=== PATIENT | female | born 1990 | race Caucasian/White ===

== ENCOUNTER 2024-11-13 16:07 | Outpatient (AMB) | payer BC, SELFPAY ==
--- OUTSIDE RECORDS SUMMARY | 2024-11-13 16:10 | XMS_ITS | Data Portability ---
Author Organization [facility], [facility] Address [address] [place] [address] Care Team Providers Care Cat Operator Name Role Phone LINDA MILLS Dental Office Receptionist [phone] [facility] (WANG WILSON) Orthopedist SORAIDA PEÑA Primary Care Provider [phone] Assessment Encounter Date Assessment Date Assessment LastModified by Organization Details LastModified Time 02/19/2024 02/19/2024 Assessment: Able to progress today into some squatting and step down variations. Pleased to hear reports of muscle fatigue rather than joint pain with exercise today. Updated exercises issued electronically. Cadet deficits/impairme nts: L LE weakness, balance, ankle mobility Functional limitations: walking and standing tolerances, stair navigation Response to treatment: patient demonstrates safe and appropriate performance of initial home exercise program. Patient tolerated all interventions well and denied adverse events upon departure. Patient would benefit from skilled PT intervention in order to address the aforementioned impairments, maximize patient function, and achieve patient specific goals. Plan: Patient will benefit from 8 weeks of skilled physical therapy at a frequency of 1session(s) per week. Treatment to include the following as indicated: 05943 Therapeutic Exercise, 50096 Neuromuscular Re-education, 14265 Gait Training, 91365 Manual Therapy, 45700 Therapeutic Activity, and 33507 Self-care and ADL Training Next visit: review home program and progress as appropriate [email or web address] Not available 02/19/2024 13:00:32 03/06/2024 03/06/2024 Assessment: Seems to be recovering well from symptom flare up from big increase in walking volume. Advise pt to work her way back up to recommended exercise volume over the next 3-4 days. Pleased to see improvements in ankle mobility. No progressions indicated today. Cadet deficits/impairme nts: L LE weakness, balance, ankle mobility Functional limitations: walking and standing tolerances, stair navigation Response to treatment: patient demonstrates safe and appropriate performance of initial home exercise program. Patient tolerated all interventions well and denied adverse events upon departure. Patient would benefit from skilled PT intervention in order to address the aforementioned impairments, maximize patient function, and achieve patient specific goals. Plan: Patient will benefit from 8 weeks of skilled physical therapy at a frequency of 1session(s) per week. Treatment to include the following as indicated: 10389 Therapeutic Exercise, 36062 Neuromuscular Re-education, 43186 Gait Training, 55635 Manual Therapy, 08329 Therapeutic Activity, and 54752 Self-care and ADL Training Next visit: review home program and progress as appropriate [email or web address] Not available 03/06/2024 16:32:51 03/13/2024 03/13/2024 Assessment: Pleased pt is tolerating higher walking volume well. Difficulty with squats seems to be related to avoidance of unrelated R hip pain which pt attributes to a skin issue. Discussed appropriate modifications at this time. Updated home exercises issued in writing. Cadet deficits/impairme nts: L LE weakness, balance, ankle mobility Functional limitations: walking and standing tolerances, stair navigation Response to treatment: patient demonstrates safe and appropriate performance of initial home exercise program. Patient tolerated all interventions well and denied adverse events upon departure. Patient would benefit from skilled PT intervention in order to address the aforementioned impairments, maximize patient function, and achieve patient specific goals. Plan: Patient will benefit from 8 weeks of skilled physical therapy at a frequency of 1session(s) per week. Treatment to include the following as indicated: 94278 Therapeutic Exercise, 71455 Neuromuscular Re-education, 89767 Gait Training, 55270 Manual Therapy, 22266 Therapeutic Activity, and 24828 Self-care and ADL Training Next visit: re-evaluate Not available 03/13/2024 16:58:00 03/30/2024 03/30/2024 Assessment: Pt appropriate for discharge to home exercise program based on progress towards established goals. Pt in agreement with this plan. Pt to contact attending PT or referring provider with any changes in symptoms or future concerns. Cadet deficits/impairme nts: L LE weakness, balance, ankle mobility Functional limitations: walking and standing tolerances, stair navigation Response to treatment: patient demonstrates safe and appropriate performance of initial home exercise program. Patient tolerated all interventions well and denied adverse events upon departure. Patient would benefit from skilled PT intervention in order to address the aforementioned impairments, maximize patient function, and achieve patient specific goals. Patients' prognosis for improvement with PT care is GOOD. Goal Progress Comment Improve rating on Patient-Specific Functional Scale activities by 2 points (MCID). goal met Independent in comprehensive HEP. goal met Patient will navigate one full flight of stairs without aggravation of symptoms for improved functional mobility. goal met Normalize L LE dorsiflexion PROM goal met Additional goals to be added as appropriate. Plan: d/c [email or web address] Not available 03/30/2024 14:26:05 Plan of Treatment Reminders Order Date Submit Date Provider Last Modified By Organization Details Last Modified Time Details Appointments Wellness Visit 2025 04:00P Carina PEÑA, IAN Not available Not available Not available Lab lipid panel, serum 2024 025 [facility], [address] [place] [address], [address], 10/28/2024 14:38:49 HbA1c (hemoglob in A1c), blood 2024 025 [facility], [address] [place] [address], [address], 10/28/2024 11:17:07 ferritin, serum or plasma 2024 025 [facility], [address] [place] [address], [address], 10/28/2024 12:29:04 iron + total iron-bind ing capacity (TIBC), serum 2024 025 [facility], [address] [place] [address], [address], 10/28/2024 14:38:51 Referral None recorded. Procedures None recorded. Surgeries None recorded. Imaging None recorded. Medication Orders Isibloom 0.15 mg-0.03 mg tablet 2024 025 [id number], [address] [place], [place], [id number], 10/22/2024 20:10:21 Patient TargetsNo targets recorded. Patient Instructions Encounter Date Encounter Id Patient Instructions Last Modified By Organization Details Last Modified Time 03/13/2024 [id number] Patient instruct ed to inform attending physical therapist of any apprehension, pain, discomfort, or change in symptoms throughout the course of treatment. Patient verbalized understanding and agreed to comply. [email or web address] Not available 03/13/2024 16:58:03 03/30/2024 [id number] Patient instruct ed to inform attending physical therapist of any apprehension, pain, discomfort, or change in symptoms throughout the course of treatment. Patient verbalized understanding and agreed to comply. [email or web address] Not available 03/30/2024 14:01:37 Reason for Referral None Reported. Results Created Date Observation Date Name Description Value Unit Range Abnormal Flag Note LastModifiedBy Organization Detail LastModifiedTime 10/29/1910/28/2024 CBC WBC 8.41 K/ L 3.98-1 0.04 Not Available [address], [address], 10/28/2024 10:02:30 10/29/1910/28/2024 CBC RBC 4.48 M/ L 3.93-5 .22 Not Available [address], [address], 10/28/2024 10:02:30 10/29/1910/28/2024 CBC HGB 13.1 g/dL 11.2-1 5.7 Not Available [address], [address], 10/28/2024 10:02:30 10/29/1910/28/2024 CBC HCT 40.0 % 34.1-4 4.9 Not Available [address], [address], 10/28/2024 10:02:30 10/29/1910/28/2024 CBC MCV 89.3 fL 79.4-9 4.8 Not Available [address], [address], 10/28/2024 10:02:30 10/29/1910/28/2024 CBC MCH 29.2 pg 25.6-3 2.2 Not Available [address], [address], 10/28/2024 10:02:30 10/29/1910/28/2024 CBC MCHC 32.8 g/dL 32.2-3 5.5 Not Available [address], [address], 10/28/2024 10:02:30 10/29/1910/28/2024 CBC plt 272 K/ L 182-36 9 Not Available [address], [address], 10/28/2024 10:02:30 10/29/1910/28/2024 CBC MPV 10.7 fL 9.4-12 .3 Not Available [address], [address], 10/28/2024 10:02:30 10/29/1910/28/2024 CBC neut% 57.2 % 34.0-7 1.1 Not Available [address], [address], 10/28/2024 10:02:30 10/29/1910/28/2024 CBC neut# 4.81 1.56-6 .13 Not Available [address], [address], 10/28/2024 10:02:30 10/29/1910/28/2024 CBC lymph % 34.6 % 19.3-5 1.7 Not Available [address], [address], 10/28/2024 10:02:30 10/29/1910/28/2024 CBC lymph # 2.91 K/ L 1.18-3 .74 Not Available [address], [address], 10/28/2024 10:02:30 10/29/1910/28/2024 CBC mono% 6.4 % 4.7-12 .5 Not Available [address], [address], 10/28/2024 10:02:30 10/29/1910/28/2024 CBC mono# 0.54 0.24-0 .56 Not Available [address], [address], 10/28/2024 10:02:30 10/29/1910/28/2024 CBC eo% 1.2 % 0.7-5. 8 Not Available [address], [address], 10/28/2024 10:02:30 10/29/1910/28/2024 CBC eo# 0.10 0.04-0 .36 Not Available [address], [address], 10/28/2024 10:02:30 10/29/1910/28/2024 CBC baso% 0.5 % 0.1-1. 2 Not Available [address], [address], 10/28/2024 10:02:30 10/29/1910/28/2024 CBC baso# 0.04 0.00-0 .08 Not Available [address], [address], 10/28/2024 10:02:30 10/29/1910/28/2024 CBC RDW-CV 13.2 % 11.7-1 4.4 Not Available [address], [address], 10/28/2024 10:02:30 10/29/1910/28/2024 CBC Ig% 0.100 % 0.000- 1.500 Ig % >0.5 Indic ates possi ble Left Shift Not Available [address], [address], 10/28/2024 10:02:30 10/29/1910/28/2024 CBC Ig# 0.010 0.000- 0.093 Not Available [address], [address], 10/28/2024 10:02:30 10/29/1910/28/2024 CBC NRBC% 0.0 % 0.0-0. 2 Not Available [address], [address], 10/28/2024 10:02:30 10/29/1910/28/2024 CBC NRBC# 0.000 0.000- 0.012 Not Available [address], [address], 10/28/2024 10:02:30 10/29/1910/28/2024 HGB A1C hemoglobin A1C 5.5 % 4.8-6. 0 Goal: <7% in Patie nts with Diabe janet An A1c betwe en 5.7-6 .4% is ident ified as pre-d iabet es and sugge sts risk for progr essio n to diabe janet Two a1c value s of 6.5% or highe r is consi stent with a diagn osis of diabe janet but may need furth er confi rmati on Not Available [address], [address], 10/28/2024 11:17:07 10/29/1910/28/2024 HGB A1C estimated average glucose 111.2 mg/dL Not Available [address], [address], 10/28/2024 11:17:07 10/29/19 10/28/2024 LISA TIN ferritin 242 NG/mL 6-115 high Not Available [address], [address], 10/28/2024 12:29:04 10/29/19 25 10/28/2024 COMP. METAB OLIC PANEL glucose 84 mg/dL 70-100 Not Available [address], [address], 10/28/2024 14:38:47 10/29/19 25 10/28/2024 COMP. METAB OLIC PANEL BUN 8 mg/dL 7-18 Not Available [address], [address], 10/28/2024 14:38:47 10/29/19 25 10/28/2024 COMP. METAB OLIC PANEL creatinine 0.9 mg/dL 0.8-1. 3 Not Available [address], [address], 10/28/2024 14:38:47 10/29/19 25 10/28/2024 COMP. METAB OLIC PANEL B/C 8.9 ratio Not Available [address], [address], 10/28/2024 14:38:47 10/29/19 25 10/28/2024 COMP. METAB OLIC PANEL GFR >=60ML /MIN mL/mi n normal >=60m L/min - Danya l or midly reduc ed <60mL /min- Decre ased kidne y funct ion <15mL /min - Kidne y failu re [facility] calcu lates estim ated Glome rular Filtr ation Rate (eGFR ) using the Chron ic Kidne y Disea se Epide miolo gy Colla borat ion (CKD- EPI) Equat ion (Dominique ghotra et. al 2020) as recom magali d by the Natio nal Kidne y Found ation . eGFR is based on age, serum creat inine , and sex. CKD-E PI does not calcu late eGFR by race, does not apply to child prince (age <18 years ), and shoul d not be used in pregn akil. Not Available [address], [address], 10/28/2024 14:38:47 10/29/19 25 10/28/2024 COMP. METAB OLIC PANEL sodium 141 mmol/ L 136-14 5 Not Available [address], [address], 10/28/2024 14:38:47 10/29/19 25 10/28/2024 COMP. METAB OLIC PANEL potassium 4.2 mmol/ L 3.5-5. 1 Not Available [address], [address], 10/28/2024 14:38:47 10/29/19 25 10/28/2024 COMP. METAB OLIC PANEL chloride 106 mmol/ L 96-107 Not Available [address], [address], 10/28/2024 14:38:47 10/29/19 25 10/28/2024 COMP. METAB OLIC PANEL anion gap 13.8 5.0-15 .0 Not Available [address], [address], 10/28/2024 14:38:47 10/29/19 25 10/28/2024 COMP. METAB OLIC PANEL CO2 21 mmol/ L 21-32 Not Available [address], [address], 10/28/2024 14:38:47 10/29/19 25 10/28/2024 COMP. METAB OLIC PANEL calcium 8.6 mg/dL 8.5-10 .3 Not Available [address], [address], 10/28/2024 14:38:47 10/29/19 25 10/28/2024 COMP. METAB OLIC PANEL total protein 6.6 g/dL 6.4-8. 2 Not Available [address], [address], 10/28/2024 14:38:47 10/29/19 25 10/28/2024 COMP. METAB OLIC PANEL albumin 3.4 g/dL 3.4-5. 0 Not Available [address], [address], 10/28/2024 14:38:47 10/29/19 25 10/28/2024 COMP. METAB OLIC PANEL globulin 3.2 g/dL Not Available [address], [address], 10/28/2024 14:38:47 10/29/19 25 10/28/2024 COMP. METAB OLIC PANEL A/G 1.1 ratio 0.8-2. 0 Not Available [address], [address], 10/28/2024 14:38:47 10/29/19 25 10/28/2024 COMP. METAB OLIC PANEL total bilirubin 0.30 mg/dL 0.00-1 .00 Not Available [address], [address], 10/28/2024 14:38:47 10/29/19 25 10/28/2024 COMP. METAB OLIC PANEL AST 3 U/L 0-37 Not Available [address], [address], 10/28/2024 14:38:47 10/29/19 25 10/28/2024 COMP. METAB OLIC PANEL ALT 16 U/L 6-63 Not Available [address], [address], 10/28/2024 14:38:47 10/29/19 25 10/28/2024 COMP. METAB OLIC PANEL alk. phos. 46 U/L 50-136 low Not Available [address], [address], 10/28/2024 14:38:47 10/29/1910/28/2024 LIPID PANEL cholesterol 189 mg/dL <200 mg/dl Abelino able 200-2 39 mg/dl Borde rline High >240 mg/dl High Not Available [address], [address], 10/28/2024 14:38:49 10/29/1910/28/2024 LIPID PANEL triglyceride s 157 mg/dL <150 mg/dL Danya l 150-1 99 mg/dL Borde rline High 200-4 99 mg/dL High >500 mg/dL Very High Not Available [address], [address], 10/28/2024 14:38:49 10/29/1910/28/2024 LIPID PANEL direct HDL 49 mg/dL <40 mg/dl - Major Risk for CHD >60 mg/dl - Negat macrina Risk for CHD Not Available [address], [address], 10/28/2024 14:38:49 10/29/1910/28/2024 DIREC T LDL direct LDL 105 mg/dL RISK CATEG ORY LDL GOAL _ CHD or CHD Risk Equiv alent s <100 mg/dl (10-y ear risk >20%) 2+ Risk Facto rs <130 mg/dl (10-y ear risk <= 20%) 0-1 Risk Facto r <160 mg/dl Almo st all peopl e with 0-1 risk facto r have a 10 year risk <10%, thus 10 year risk asses ment in peopl e with 0-1 risk facto r is not neces fran. Not Available [address], [address], 10/28/2024 14:38:50 10/29/1910/28/2024 IRON PANEL iron 67 ug/dL 35-150 Not Available [address], [address], 10/28/2024 14:38:50 10/29/1910/28/2024 IRON PANEL T.I.B.C. 304 ug/dL 250-45 0 Not Available [address], [address], 10/28/2024 14:38:50 10/29/1910/28/2024 IRON PANEL % saturation 22.0 % Not Available [address], [address], 10/28/2024 14:38:50 Result Notes None recorded. Problems Name Problem SNOMED Code Status Onset Date Resolution Date Notes Provider Name and Address Organization Details Recorded Time Gastroesop hageal reflux disease 628620200 Active Teri Payne, [facility]-[address], [address] , [facility] 4 12:39:32 Migraine 66400151 Active 2021 Mara Young MD [address] [place] [address], [address] , [facility] 2 10:36:05 Headache 97273821 Completed 01/17/2015 Mara Young MD [address] [place] [address], [address] , [facility] 2 10:35:58 Contusion 694712772 Completed 200203/25/2013 Not Available [facility] 3 02:02:46 Contusion of finger 71508524 Completed 200803/25/2013 Not Available [facility] 3 02:04:20 Influenza with respirator y manifestat ion other than pneumonia Completed 200703/25/2013 Not Available [facility] 3 02:03:48 Allergic rhinitis 05274990 Active Not Available [facility] 3 03:06:36 Acute pharyngiti s 549901118 Completed 200703/25/2013 Not Available [facility] 3 02:01:15 Rosacea 765795781 Active 2004 Not Available [facility] 3 03:06:36 Contusion of foot 47979295 Completed 200103/25/2013 Not Available [facility] 3 02:04:22 Injury of hand 535833118 Completed 200803/25/2013 Not Available [facility] 3 02:04:03 Obesity 584698102 Active Not Available [facility] 3 03:06:36 Patellar tendonitis 39655076 Completed 03/25/2013 Not Available [facility] 3 02:04:18 Pain of joint 22432937 Completed 200801/17/2015 Beryl March NP [address] [place] [address], [address] , [facility] 5 16:22:12 Pain of joint of hand 798779298 Completed 200103/25/2013 Not Available [facility] 3 02:02:43 Generalize d abdominal pain 462515731 Completed 200003/25/2013 Not Available [facility] 3 02:02:04 Elevated blood-pres sure reading without diagnosis of hypertensi on 313389517 Completed 01/17/2015 Beryl March NP [address] [place] [address], [address] , [facility] 5 16:22:12 Acne 14590493 Active Not Available [facility] 3 03:06:36 Injury of elbow 036629294 Completed 200803/25/2013 Not Available [facility] 3 02:04:03 Sprain of wrist 39610171 Completed 200503/25/2013 Not Available [facility] 3 02:03:44 Pain of wrist region 04049441 Completed 200103/25/2013 Not Available [facility] 3 02:02:22 Pain in limb 54067264 Completed 200103/25/2013 Not Available [facility] 3 02:00:52 Malaise and fatigue 290148557 Completed 200203/25/2013 Not Available [facility] 3 02:00:14 Sprain of hand 25183409 Completed 200803/25/2013 Not Available [facility] 3 02:03:40 Problem Notes None recorded. Procedures Surgical History Date Name Laterality Status Provider Name and Address Organization Details Recorded Time 4 96418: Therapeutic Exercise completed RUPERT RUIZ, PT, DPT [address] [place], [address], [facility] 03/30/2024 14:25:07 4 Treatment and Advice completed RUPERT RUIZ PT, DPT [address] [place] [address], [address], [facility] 03/30/2024 14:01:37 4 40250: Therapeutic Exercise completed RUPERT RUIZ PT, DPT [address] [place] [address], [address], [facility] 03/13/2024 16:56:25 4 Treatment and Advice completed RUPERT RUIZ PT, DPT [address] [place] [address], [address], [facility] 03/13/2024 16:50:45 4 40202: Therapeutic Exercise completed RUPERT RUIZ PT, DPT [address] [place], [address], [facility] 03/06/2024 16:31:45 4 Treatment and Advice completed RUPERT RIUZ PT, DPT [address] [place] [address], [address], [facility] 03/06/2024 16:06:58 4 16824: Therapeutic Exercise completed RUPERT RUIZ, PT, DPT [address] [place] [address], [phone], [facility] 02/19/2024 12:56:30 4 Treatment and Advice completed RUPERT RUIZ PT, DPT [address] [place] [address], [address], [facility] 02/19/2024 12:56:24 4 31495: Therapeutic Exercise completed RUPERT RUIZ PT, DPT [address] [place] [address], [address], [facility] 02/13/2024 07:56:48 4 Treatment and Advice completed RUPERT RUIZ PT, DPT [address] [place], [address], [facility] 02/13/2024 07:55:02 4 30266: Therapeutic Exercise completed RUPERT RUIZ PT, DPT [address] [place], [address], [facility] 02/06/2024 07:58:54 4 Treatment and Advice completed RUPERT RUIZ PT, DPT [address] [place] [address], [address], [facility] 02/06/2024 07:52:43 4 80900: Therapeutic Exercise completed RUPERT RUIZ PT, DPT [address] [place], [address], [facility] 01/30/2024 08:00:26 4 73939: Manual Therapy completed RUPERT RUIZ PT, DPT [address] [place], [address], [facility] 01/30/2024 08:00:46 4 Treatment and Advice completed RUPERT RUIZ PT, DPT [address] [place], [address], [facility] 01/30/2024 07:54:35 4 Smoking Cessation Counselling completed RUPERT RUIZ PT, DPT [address] [place], [address], [facility] 01/20/2024 10:08:16 4 Physical Activity Counselling completed RUPERT RUIZ PT, DPT [address] [place], [address], [facility] 01/20/2024 10:08:16 4 67822: PT Eval Low Complexity completed RUPERT RUIZ, PT, DPT [address] [place], [address], [facility] 01/20/2024 10:08:16 4 Treatment and Advice completed RUPERT RUIZ, PT, DPT [address] [place], [address], [facility] 01/21/2024 08:28:13 0 prevention-syd al alcohol misuse screening completed Tomasa Reynoso [facility] 01/20/2020 08:41:39 8 POC Strep Testing completed Meaghan Medina [facility] 09/05/2017 09:19:51 8 POC Strep Testing completed Ny Pleitez [facility] 07/16/2017 11:55:53 8 Refraction completed Zaina Esparza [facility] 05/23/2017 11:06:52 7 Cerumen Removal - Irrigation/Lava ge completed Rikki Graff PA-C [address] [place], [address], [facility] 07/28/2016 09:31:17 5 Cerumen Removal completed Sushma Quinones [facility] 12/27/2014 11:00:26 Imaging Results None recorded. Procedure Notes None recorded. Medical Equipment None Reported. Allergies No known drug allergies Medications Name Sig Start Date Stop Date Status Note LastModified by Organization Details LastModified Time cyclobenz aprine 10 mg tablet Take 1 tablet twice a day by oral route as needed. 03/02 completed Not Available Not Available Not Available verapamil 40 mg tablet TAKE 1 TABLET BY MOUTH TWICE A DAY 04/07 completed per patient is not taking this anymore 04/07/20 srp Not Available Not Available Not Available ibuprofen 800 mg tablet 12/27 completed Not Available Not Available Not Available sumatript an 100 mg tablet TAKE 1 TABLET BY MOUTH AT LEAST 2 HOURS BETWEEN DOSES NEEDED DIRECTED active Not Available Not Available No t Available ondansetr on HCl 8 mg tablet TK 1 T PO Q 8 H FOR 2 DAYS 07/03 completed Not Available Not Available Not Available atovaquon e 250 mg-progua nil 100 mg tablet TK 1 T PO D STARTING 1 TO 2 DAYS BEFORE TRAVEL AND CONTINUE D FOR 7 DAYS POST-TRA ARLENE 05/04 completed Not Available Not Available Not Available sumatript an 50 mg tablet 06/11 completed taking the 100 mg 06/11/23 DS Not Available Not Available Not Available topiramat e 25 mg tablet TK 1 T PO QD FOR 7 DAYS. MAY INCREASE TO 2 TS D FOR 7 DAYS 04/07 completed Not Available Not Available Not Available omeprazol e 40 mg capsule,d elayed release TAKE 1 CAPSULE BY MOUTH EVERY DAY 12/16 completed Not Available Not Available Not Available doxycycli ne monohydra te 100 mg tablet Take 1 tablet twice a day by oral route for 30 days. 08/13 completed Not Available Not Available Not Available ketorolac 30 mg/mL (1 mL) injection solution Administ er 30 mg/ml now 07/03 completed Not Available Not Available Not Available amitripty line 25 mg tablet Take 1 tablet every day by oral route for 30 days. 02/17 completed Not Available Not Available Not Available metoclopr amide 5 mg tablet TAKE 1 TABLET BY MOUTH DAILY NEEDED FOR NAUSEA active Not Available Not Available No t Available ciproflox acin 0.3 % eye drops INSTILL 1 DROP INTO AFFECTED ear every 12 hours for 7 days active Not Available Not Available No t Available benzonata te 100 mg capsule 07/16 completed Pt has not picked up 05/04/17 Not Available Not Available Not Available Cipro 500 mg tablet Take 1 tablet every 12 hours by oral route for 7 days. 12/02 completed Not Available Not Available Not Available nystatin 100,000 unit/gram topical cream JOSE AA TOPICALL Y BID UNTIL RASH RESOLVES 09/13 completed Not Available Not Available Not Available ranitidin e 150 mg tablet Take 1 tablet twice a day by oral route for 30 days. 07/06 completed Not Available Not Available Not Available promethaz ine 25 mg/mL injection solution Take 1 mL every day by injectio n route as directed for 1 day. 04/04 completed Not Available Not Available Not Available naproxen 500 mg tablet,de layed release Take 1 tablet twice a day by oral route as needed. 03/02 completed Not Available Not Available Not Available ibuprofen 400 mg tablet Take 1 tablet as needed by oral route. 2008 active Not Available Not Available Not Avai lable omeprazol e 20 mg capsule,d elayed release TAKE 1 CAPSULE BY MOUTH DAILY before breakfas t meal 2024 active Not Available Not Available Not Avai lable ibuprofen 600 mg tablet Take 1 tablet 3 times a day by oral route for 7 days. 12/25 completed Not Available Not Available Not Available ferrous sulfate 325 mg (65 mg iron) tablet,de layed release Take 1 tablet by oral route for 30 days. 09/13 completed Not Available Not Available Not Available ketorolac 60 mg/2 mL intramusc ular solution Inject 2 mL every day by intramus cular route as directed for 1 day. 04/04 completed Not Available Not Available Not Available ketoconaz ole 2 % topical cream APPLY TOPICALL Y TO THE AFFECTED AREA EVERY DAY 06/11 completed Not Available Not Available Not Available Cortispor in-TC 3.3 mg-3 mg-10 mg-0.5 mg/mL ear drops,jeremías pension Instill 3 drops 3 times a day by otic route for 4 days. 03/02 completed 01/17/15- pt states she no longer takes med-ac Not Available Not Available Not Available topiramat e 100 mg tablet TAKE 1 TABLET BY MOUTH EVERY DAY active Not Available Not Available No t Available loratadin e 10 mg tablet Take 1 tablet every day by oral route for 30 days. 2008 active Not Available Not Available Not Avai lable Lessina 0.1 mg-20 mcg tablet TAKE 1 TABLET BY MOUTH EVERY DAY 04/26 completed Not Available Not Available Not Available azithromy betsy 500 mg tablet 12/27 completed Not Available Not Available Not Available Ciprodex 0.3 %-0.1 % ear drops,jeremías pension INT 4 GTS AEA BID FOR 7 DAYS 05/04 completed Not Available Not Available Not Available topiramat e 50 mg tablet TAKE 1 AND 1/2 TABLETS BY MOUTH EVERY DAY 02/15 completed Not Available Not Available Not Available ProAir HFA 90 mcg/actua tion aerosol inhaler INL 2 PFS PO Q 4 H PRN 07/16 completed Not Available Not Available Not Available FeroSul 325 mg (65 mg iron) tablet TAKE 1 TABLET BY MOUTH EVERY DAY 10/30 completed Not Available Not Available Not Available Isibloom 0.15 mg-0.03 mg tablet 1 tab every day. Does not take the placebo pills. 2024 active Not Available Not Available Not Avai lable Sodium Fluoride 5000 Plus 1.1 % dental cream 06/11 completed Not Available Not Available Not Available Flublok Quad (PF) 180 mcg (45 mcg x 4)/0.5 mL IM syringe PHARMACY ADMINIST ERED 03/03 completed Not Available Not Available Not Available Vitals Date Recorded Body height Body mass index (BMI) Body weight Oxygen saturation Oxygen saturation in Arterial blood by Pulse oximetry Heart rate Systolic And Diastolic Provider Name and Address Organization Details Last Updated DateTime 5 149.86 cm 41.2 kg/m2 04802.8 4 g 98 % 98 % 82 /min 120/68 mm[Hg] Lars Salinas MA [facility] 5 16:13:08 Social History Question Answer Notes LastModified by Organizat ion Details LastModified Time Tobacco Smoking Status Never Smoker Not Available [facility] 03/22/2011 04:48:29 Do You Have An Advance Directive? No 7 Information not available 03/22/2011 What Is Your Level Of Caffeine Consumption? None Very Rarely [email or web address] Information not available 06/11/2023 How Much Tobacco Do You Chew? None 7 Information not available 03/22/2011 Which Illicit Or Recreational Drugs Have You Used? No Information not available 03/11/2015 Education 2 Year College Information not available 03/11/2015 What Is The Highest Grade Or Level Of School You Have Completed Or The Highest Degree You Have Received? [id number] Information not available 02/15/2021 How Many Days In The Past Year Have You Had A Heavy Drinking Consumption (4+ Female, 5+ Male)? 0 Information not available 01/17/2015 Live Alone Or With Others? Alone Information not available 01/20/2020 Have Your Ever Had Any Service? No Information not available 10/22/2024 How Many Times Per Week Do You Exercise For 30+ Minutes? 1-4 Times Per Week Takes 15 To 30 Min Walks 4 Times A Week Information not available 10/22/2024 Patient Has Health Care Proxy Signed And In Chart No 10/22/24- Form Given To Pt 7 Information not available 03/22/2011 Marital Status Single [id number] Information not available 03/22/2011 Mosquito Repellent Used Routinely Yes 7 Information not available 03/22/2011 What Was The Date Of Your Most Recent Tobacco Screening? 10/22/2024 Information not available 10/22/2024 How Many Children Do You Have? 0 7 Information not available 03/22/2011 What Is Your Relationship Status? Single Information not available 02/15/2021 Seat Belts Used Routinely Yes 7 Information not available 03/22/2011 Are You Sexually Active? No 7 Information not available 03/22/2011 Smoke Alarm In Home Yes 7 Information not available 03/22/2011 How Much Tobacco Do You Smoke? No 7 Information not available 03/22/2011 General Stress Level Medium Low To Medium Information not available 01/20/2020 Sex: Female Functional Status Question Answer Note LastModified by Organizat ion Details LastModified Time Do you use any illicit or recreational drugs? No Information not available 02/15/2021 Do you or have you ever used any other forms of tobacco or nicotine? No Information not available 04/04/2022 What is your level of alcohol consumption? None very rare, like 1 drink every 6 months [email or web address] Information not available 06/11/2023 Do you or have you ever used smokeless tobacco? Never used smokeless tobacco Information not available 07/03/2019 Are you currently employed? Yes Information not available 02/15/2021 What is your occupation? works for [employer] Information not available 10/22/2024 Do you or have you ever used e-cigarettes or vape? Never used electronic cigarettes Information not available 07/03/2019 Mental Status None recorded. Family History Relationship Description Onset Age of this Age Resolved Age Notes LastModified by Organization Details LastModified Time Father Malignant neoplastic disease kidney (previ ously record ed as Cancer ) egraef Not available 03/11/2015 16:49:51 Mother Osteoporosis egraef Not availab le 03/11/2015 16:49:51 Mother Disorder of thyroid gland egraef Not available 2014 16:49:51 Sister Disorder of thyroid gland egraef Not available 2020 16:00:39 Notes:No colon or breast CA Medical History Condition Response acne Y Gynecological History Statement/Question Response Menses Monthly Y Duration of Flow (days) 5 Date of LMP 03/10/2022 Approximate Obstetrics History GPAL:G 0 P 0 0 0 0 Immunizations Vaccine Type Date Status Note Provider Nam e and Address Organization Details Recorded Time Td(adult) unspecified formulation 3 completed Not Available [facility] 03/21/2011 05:22:52 HPV, unspecified formulation 7 completed Not Available [facility] 03/21/2011 05:23:04 HPV, unspecified formulation 7 completed Not Available [facility] 03/21/2011 05:21:55 HPV, unspecified formulation 8 completed Not Available [facility] 03/21/2011 05:21:55 Influenza, split virus, trivalent, PF 3 completed Not Available [facility] 05/23/2019 02:26:42 Influenza, split virus, quadrivalent, PF 5 completed Not Available [facility] 05/23/2019 02:26:43 Influenza, split virus, quadrivalent, PF 6 completed Not Available [facility] 05/23/2019 02:33:00 Influenza, split virus, quadrivalent, PF 9 completed Not Available [facility] 05/23/2019 02:23:32 Influenza, split virus, quadrivalent, PF 9 completed Not Available [facility] 05/23/2019 02:24:05 Influenza, split virus, quadrivalent, PF 1 completed Teri Payne, [address], [address], [facility] 02/15/2021 16:00:51 Td (adult), 2 Lf tetanus toxoid, preservative free, adsorbed 1 completed Teri Payne, [address], [address], [facility] 02/15/2021 16:00:51 Influenza, split virus, quadrivalent, preservative 0 completed Not Available [facility] 03/01/2020 16:04:17 COVID-19, mRNA, LNP-S, PF, 100 mcg/0.5mL dose or 50 mcg/0.25mL dose 1 [facility] 10:01:27 COVID-19, mRNA, LNP-S, PF, 100 mcg/0.5mL dose or 50 mcg/0.25mL dose 1 [facility] 12/17/2023 10:01:27 Influenza, split virus, trivalent, preservative 1 completed Not Available [facility] 05/23/2019 02:38:01 Tdap 1 completed Not Available [facility] 05/23/2019 02:38:55 Influenza, MDCK, quadrivalent, PF 2 completed [facility] 12/17/2023 10:01:27 COVID-19, mRNA, LNP-S, PF, 100 mcg/0.5mL dose or 50 mcg/0.25mL dose 1 [facility] 12/17/2023 10:01:27 COVID-19, mRNA, LNP-S, bivalent, PF, 50 mcg/0.5 mL or 25mcg/0.25 mL dose 2 completed [facility] 12/17/2023 10:01:27 COVID-19, mRNA, LNP-S, PF, 50 mcg/0.5 mL 3 completed KOLBY White [facility] 12/17/2023 10:01:27 Influenza, split virus, quadrivalent, PF 3 completed [facility] 12/17/2023 10:01:28 Past Encounters Encounter ID Performer Location Encounter Start Date Encounter Closed Date Diagnosis/Indication Diagnosis SNOMED-CT Code Diagnosis ICD10 Code Diagnosis Note [id number] Shital Anna , [facility], [address] [place] [address] 09/03/2000 15:00:00 05/26/2008 02:02:29 [id number] [facility] , [address] [address] 07/29/2001 11:00:00 05/26/2008 02:02:29 [id number] Angel Fischer MD , [facility], [address] [place] [address] 07/28/2001 17:45:00 05/26/2008 02:02:29 [id number] Shital Anna , [facility], [address] [place] [address] 10/29/2001 14:44:03 05/26/2008 02:02:29 [id number] TOSHIA Dasilva , [facility], [address] [place] [address] 01/06/2002 12:19:15 05/26/2008 02:02:29 [id number] [facility] [address] [place] [address] 01/06/2002 13:55:07 05/26/2008 02:02:29 [id number] Shital Anna , [facility], [address] [place] [address] 11/04/2002 09:56:04 05/26/2008 02:02:29 [id number] [facility] - [facility] [address] [place] [address] 11/10/2002 10:14:53 05/26/2008 02:02:29 [id number] TOSHIA Dasilva , [facility], [address] [place] [address] 04/12/2003 09:44:17 04/12/2003 15:23:36 [id number] [facility] , [facility] [address] [place] [address] 04/12/2003 10:46:15 05/26/2008 02:02:29 [id number] Shital Anna , [facility], [address] [place] [address] 09/18/2004 15:17:50 09/19/2004 09:21:14 [id number] Shital Anna , [facility], [address] [place] [address] 02/14/2005 14:16:19 05/26/2008 02:02:29 [id number] Beryl March NP , [facility], [address] [place] [address] 08/22/2005 15:23:30 08/23/2005 08:28:41 [id number] [facility] , [facility] [address] [place] [address] 08/22/2005 15:50:04 05/26/2008 02:02:29 [id number] Moira Schwarz MD , [facility], [address] [place] [address] 09/27/2005 14:38:18 09/28/2005 08:40:52 [id number] Nusrat villalobos, PT Physical Therapy, [facility] [address] [place] [address] 10/08/2005 08:06:28 05/26/2008 02:02:29 [id number] Shital Anna , [facility], [address] [place] [address] 11/19/2005 15:36:10 11/19/2005 17:47:50 [id number] Shital Anna , [facility], [address] [place] [address] 11/26/2006 11:15:03 11/26/2006 14:57:31 [id number] FP TREATMENT NURSE [facility] FP, [facility], [address] [place] [address] 12/02/2006 15:37:10 12/02/2006 16:50:12 [id number] FP TREATMENT NURSE [facility], [facility], [address] [place] [address] 05/01/2007 15:37:37 05/26/2008 02:02:29 [id number] TOSHIA Lainez , [facility], [address] [place] [address] 08/08/2007 10:02:04 05/26/2008 02:02:29 [id number] FP TREATMENT NURSE [facility], [facility], [address] [place] [address] 09/03/2007 14:38:45 05/26/2008 02:02:29 [id number] DANN Stephenson, [facility], [address] [place] [address] 12/09/2007 13:46:25 05/26/2008 02:02:29 [id number] MD MAYRA Humphries, [facility], [address] [place] [address] 06/07/2008 08:56:53 06/09/2008 10:13:18 [id number] Maynor Espino , PT Physical Therapy, [facility] [address] [place] [address] 06/18/2008 15:43:48 06/22/2008 07:58:30 [id number] MD MAYRA Phillips, [facility], [address] [place] [address] 09/01/2008 15:06:12 09/07/2008 08:09:09 [id number] DANN Stephenson, [facility], [address] [place] [address] 12/10/2008 13:38:39 12/15/2008 11:14:17 [id number] DANN Carlos, [facility], [address] [place] [address] 12/31/2008 13:24:04 01/03/2009 14:10:17 [id number] DANN Carlos, [facility], [address] [place] [address] 01/28/2009 09:14:16 01/31/2009 14:56:49 [id number] [facility] RADIOLOGY [facility] , [facility] [address] [place] [address] 06/07/2008 09:26:09 06/08/2008 09:22:36 [id number] Hanna Gallego NP FP, [facility], [address] [place] [address] 06/02/2010 13:30:50 06/05/2010 15:14:03 [id number] Hanna Gallego NP FP, [facility], [address] [place] [address] 07/14/2010 07:58:18 07/17/2010 12:28:56 [id number] Hanna Gallego NP FP, [facility], [address] [place] [address] 12/18/2010 09:49:12 12/18/2010 10:27:25 [id number] TANJA Talavera, [facility], [address] [place] [address] 07/05/2011 08:42:10 07/05/2011 09:18:35 [id number] HOA Haas, [facility], [address] [place] [address] 07/20/2011 13:18:50 07/20/2011 14:35:33 [id number] HOA Haas, [facility], [address] [place] [address] 08/17/2011 13:22:07 08/20/2011 13:39:53 [id number] [facility] SOCIAL SECURITY SPECIALIST Radiology , [facility] [address] [place] [address] 08/20/2011 07:30:01 08/21/2011 11:50:47 [id number] [facility] SOCIAL SECURITY SPECIALIST Radiology , [address] [address] 10/08/2011 09:37:30 10/09/2011 09:47:36 [id number] HOA Haas, [facility], [address] [place] [address] 06/02/2012 15:18:45 06/02/2012 15:46:22 [id number] Teri HOA Martino , [facility], [address] [place] [address] 06/06/2012 08:16:12 06/06/2012 09:17:57 [id number] Teri PaigeHOA Driver , [facility], [address] [place] [address] 06/16/2012 08:27:35 06/16/2012 09:21:34 [id number] HOA Haas , [facility], [address] [place] [address] 06/30/2012 08:19:02 2012 10:59:53 [id number] TeriHOA Connor , [facility], [address] [place] [address] 01/14/2013 09:16:35 01/14/2013 10:27:46 Adult health examination [id number] see Risk Assessment and Lifestyle Change Counseling section above. mom recently diagnosed with thyroid disase. pt with no concerns. GERD managed by GI with lifestyle modificait ons. deferred pap due to no sexual activity. Counseling [id number] Influenza vaccine needed [id number] 106 Examinatio n for population survey [id number] Francia Ordaz MD , [facility], [address] [place] [address] 07/09/2013 12:16:21 07/10/2013 09:26:16 Dizziness [id number] Possibly due to stress. Reassuranc e, if not resolved or worsens within the next three weeks RTC. [id number] Sruthi Galindo M.D. , [facility], [address] [place] [address] 11/22/2013 10:29:55 11/22/2013 11:10:07 Otalgia 41000900 R erythema of canal to TM w/ opacificat ion of TM irreg borders (ie not entire TM opacified) will treat otitis externa; expect improvemen t in the next week pt to call in 72 hours if no improvemen t, t/c oral abx at that time nkda [id number] Brittany Tapia MD , [facility], [address] [place] [address] 06/17/2014 16:23:51 06/17/2014 17:15:44 Otitis externa 3891162 advised keeping water out of ear canals, ear plugs as needed after infection clears. [id number] Rayshawn Palomares MD , [facility], [address] [facility] [place] [address] 12/27/2014 10:08:03 12/27/2014 15:47:04 Impacted cerumen 80459654 Otitis externa 2747900 A ppears to be mild/mostl y due to impacted cerumen/a few days of Cortispori n may help/she is advised to keep water out of her ear for the next week [id number] Toribio Wilson MD , [facility], [address] [place] [address] 01/17/2015 16:11:44 01/17/2015 16:36:29 Backache 186467191 muscle strain from doing yard work recently - enc ice to area, can alternate with heat. Will try naproxen BID as below - take with food. Muscle relaxer prescribed to use primarily at HS and pt to f/u prn if not gradually improving or sx worsening. Reviewed potential adverse effects of both meds with pt. Influenza vaccine needed [id number] [id number] Teri Payne, [facility], [facility], [address] [place] [address] 03/11/2015 16:25:05 03/11/2015 17:09:20 Adult health examination 616863953 Z00.00 see Risk Assessment and Lifestyle Change Counseling section above. pt with no concerns. GERD managed by GI with lifestyle modificait ons. deferred pap due to no sexual activity. family history of thyroid disease. up to date on flu. Venereal d isease screening 679788028 Z11.3 Overweight 749588022 E66 .3 pt vebalized understand ing of diet and exercise. plans to increase activity. [id number] Angel Fischer MD , [facility], [address] [place] [address] 03/02/2016 12:01:04 03/02/2016 12:25:35 Active or passive immunization 790953121 Z23 Neck pain 27875909 M54.2 [id number] ZULLY HaasP-BC , [facility], [address] [place] [address] 06/01/2016 16:21:25 06/01/2016 17:24:02 Adult health examination 328367259 Z00.00 see Risk Assessment and Lifestyle Change Counseling section above, external vaginal exam completed. deferred pap until pt becomes sexually active. Counseling 241766344 Z71 .9 Gastroesop hageal reflux disease 858793624 K21.9 difficulty reducing dosage of current medication regimen, consider adding rainitidin e when reducing afternoon time dosage of omeprazole to minimize rebound acid production , continue with dietary modificati on. [id number] King Loya MD , [facility], [address] [place] [address] 07/28/2016 09:00:37 07/28/2016 09:31:29 Otalgia 96097205 H92.01 Better after irrigation but still a bit uncomforta ble and slightly macerated. Tx for OE as well. [id number] Brittany Tapia MD , [facility], [address] [place] [address] 05/04/2017 09:24:47 05/04/2017 10:07:23 Acute upper respiratory infection 54884364 J06.9 Educated patient that URI is a viral illness of the upper airways. It is not bacterial and does not benefit from antibiotic s. Average duration of URI is 7-10 days but in a recent trial, treatment at 7-10 days of illness with antibiotic s, intranasal steroids, or placebo did not alter natural history at 3 weeks. Recommende d symptomati c treatments including NSAIDS, semi-uprig ht sleep position, antihistam shaylee at HS, limited course of nasal sympathomi metics and/or cough syrups, and nasal saline rinses with soft squeeze bottle or Neti pot. Return for fevers > 101 for 3 days, worsening sinus pain, or failure to resolve in 2-4 weeks.Tria l inhaler for breathless ness. [id number] Toribio Wilson MD , [facility], [address] [place] [address] 05/23/2017 09:57:25 05/23/2017 10:16:29 Injury of upper extremity 699703922 S49.91XA bruise plan ibuprofen, could apply ice to wrist today [id number] Fanta Mills OD [facility], [facility] [address] [place] [address] 05/23/2017 10:36:02 05/23/2017 11:45:25 Myopia 58667766 H52.13 c/w blurry vision. glasses rx given. Headache 17541459 R51 mild, without ocular etiology, may be related to uncorrecte d refractive error. recommend new glasses. if worsen, f/u with PCP. [id number] Carl Barcenas MD , [facility], [address] [place] [address] 07/16/2017 11:37:06 07/16/2017 12:20:36 Common cold 68354268 J00 Cold self care measures reviewed and encouraged (fluids, steam inhalation , adequate rest). F/U if sx worsen or aren't resolving. rapid strep negative.m onitor for worsening symptoms. [id number] Carl Barcenas MD , [facility], [address] [place] [address] 07/19/2017 16:13:05 07/22/2017 08:56:41 Adult health examination 821183801 Z00.00 see Risk Assessment and Lifestyle Change Counseling section above, declines pap as denies sexual activity. Counseling 382536798 Z71 .9 Depression screening 171 709524 Z13.89 depression screening tool administer ed, entered into emr, scored and discussed, time greater than 7.5 minutes Overweight 330162767 E66 .3 pt vebalized understand ing of diet and exercise. plans to increase activity.f ollow up in 3 months, consider nutrition consultati on at that time. [id number] Angel Fischer MD , [facility], [address] [place] [address] 09/05/2017 09:06:00 09/05/2017 09:56:21 Acute upper respiratory infection 13471080 J06.9 Educated patient that URI is a viral illness of the upper airways. It is not bacterial and does not benefit from antibiotic s. Average duration of URI is 7-10 days but in a recent trial, treatment at 7-10 days of illness with antibiotic s, intranasal steroids, or placebo did not alter natural history at 3 weeks. Recommende d symptomati c treatments including NSAIDS, semi-uprig ht sleep position, antihistam shaylee at HS, limited course of nasal sympathomi metics and/or cough syrups, and nasal saline rinses with soft squeeze bottle or Neti pot. Return for fevers > 101 for 3 days, worsening sinus pain, or failure to resolve in 2-4 weeks. Gastroesop hageal reflux disease 276737900 K21.9 stop rare NSAID use, continue omperaxole 20 2/day- suspect tender due to URI aggravatin g [id number] Dagoberto Gallagher MD , [facility], [address] [place] [address] 05/07/2018 15:43:30 05/07/2018 17:14:56 Pain of left ankle joint [id number] M25.572 Patient with left lateral ankle pain. Suspect ATFL sprain. Fell 4 weeks ago while traveling in [place]. Fell down few steps. Not sure of the mechanism of injury. Pain in the left lateral ankle. States she walked on this foot for 2 weeks until she came back to the [facility]. Continuing with pain. No calf tenderness . Preliminar y X-ray negative. Will wait for the formal report. Dispensed ankle gel-stirru p brace. RICE therapy recommende d. NSAID's recommende d (with PPI due to underlying GERD). Advised to contact in no improvemen t in 1 week. [id number] Dagoberto Gallagher MD , [facility], [address] [place] [address] 05/14/2018 09:59:02 05/14/2018 10:23:03 Pain of left ankle joint [id number] M25.572 Patient with left lateral ankle pain. Suspect ATFL sprain. Fell 4 weeks ago while traveling in [place]. Fell down few steps. Not sure of the mechanism of injury. Pain in the left lateral ankle. States she walked on this foot for 2 weeks [place]. Continuing with pain. No calf tenderness . X-ray negative. .reports no improvemen t with ankle gel-stirru p brace. RICE therapy recommende d. NSAID's recommende d (with PPI due to underlying GERD). Will refer to orthopedic .will send in RX for walking boot Active or passive immunization [id number] Z23 [id number] Carl Barcenas MD , [facility], [address] [place] [address] 08/18/2018 16:36:08 08/19/2018 12:32:35 Adult health examination 832983646 Z00.00 see Risk Assessment and Lifestyle Change Counseling section above Counseling 004795515 Z71 .9 Depression screening 171 532359 Z13.89 depression screening tool administer ed, entered into emr, scored and discussed, time greater than 7.5 minutes Screening for malignant neoplasm of cervix 773984708 Z12.4 pap attempted, uncomforta ble for pt so not completed. Overweight 150797238 E66 .3 pt verbalized understand ing of diet and exercise. plans to increase activity.f ollow up in 1 months, consider nutrition consultati on at that time. [id number] Carl Barcenas MD , [facility], [address] [place] [address] 01/28/2019 11:24:08 01/28/2019 12:09:02 Administration of influenza vaccine 28035842 Z23 Active or passive immunization 044373171 Z23 Excessive and frequent menstruation 803627364 N92.1 reviewed potential etiologys and work up.pt prefers to treat at this time with ocps while work up is pending Menorrhagia 058410916 N9 2.0 [id number] Angel Fischer MD , [facility], [address] [place] [address] 03/17/2019 14:26:22 03/17/2019 15:03:53 Migraine 65887324 G43.909 ketorolac administer ed in clinic with good effectrx for sumatripta n for abortive therapyhea dache journalrtc for worsening symptoms [id number] Brittany Tapia MD , [facility], [address] [place] [address] 07/03/2019 08:59:59 07/03/2019 09:37:06 Candidiasis of skin 33668485 B37.2 shiny rash under left breast, no open areas currentlyl ikely yeastadvis ed prevention and tx, keeping dryto call if tx not effective by two week marilynn [id number] Carl Barcenas MD , [facility], [address] [place] [address] 08/05/2019 09:27:22 08/07/2019 13:52:40 Dysmenorrhea 243514093 N94.6 responding to OCPS, now regular menses and lightconti nue Anemia 877667383 D64.9 continue iron until follow up labsnow 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 It is not bacterial and does not benefit from antibiotic s. Average duration of URI is 7-10 days but in a recent trial, treatment at 7-10 days of illness with antibiotic s, intranasal steroids, or placebo did not alter natural history at 3 weeks. Recommende d symptomati c treatments including NSAIDS, semi-uprig ht sleep position, antihistam shaylee at HS, limited course of nasal sympathomi metics and/or cough syrups, and nasal saline rinses with soft squeeze bottle or Neti pot. Return for fevers > 101 for 3 days, worsening sinus pain, or failure to resolve in 2-4 weeks. Suspected COVID-19 07841 4004 Z03.818 will refer for testing as mom has asked pt is being asked to return to work [id number] Carl Barcenas MD , [facility], [address] [place] [address] 11/05/2019 11:36:21 11/10/2019 10:36:27 Allergic rhinitis 77531867 J30.9 reviewed management including antihistam inesand nasal corticoste roidsquest ions answered [id number] Demi Abreu NP , [facility], [address] [place] [address] 01/01/2020 14:46:05 01/04/2020 15:36:28 Migraine without aura 65515819 G43.009 suggest take triptan as Rx today, fluids, rest, relaxation . If wakes with ACUÑA still in AM, call urgent care to come in for toradol injection. Currently 4PM here and too late for that now. Pt agrees with plan. Also suggest talk with PCP next month about ?preventiv e med. [id number] Carl Barcenas MD , [facility], [address] [place] [address] 01/20/2020 08:41:06 01/21/2020 15:37:54 Adult health examination 558954187 Z00.00 see Risk Assessment and Lifestyle Change Counseling section above Counseling 258898507 Z71 .9 Depression screening 171 638947 Z13.89 depression screening tool administer ed, entered into emr, scored and discussed, time greater than 7.5 minutes Screening for alcohol abuse 976505528 Z13.39 Daily headache 495892691 1 03 R51 [id number] Carl Barcenas MD , [facility], [address] [place] [address] 01/28/2020 11:32:11 02/01/2020 15:50:14 Headache 83431865 R51 d/c amitrpytil netrial verapamilf ollow up in 2 weeks [id number] Carl Barcenas MD , [facility], [address] [place] [address] 02/18/2020 09:48:47 02/24/2020 14:43:39 Headache 44197968 R51.9 improvemen t , but not resolvedwi ll monitor for 2 weeksif no improvemen t consider medication increase or medication change. Insomnia 499787246 G47.0 0 trial melatonin [id number] OCTAVIO Haas-LAINA , [facility], [address] [place] [address] 03/03/2020 11:08:10 03/08/2020 08:53:09 Migraine 11706635 G43.909 thus far amitryptil ine and verapamil ineffectiv etrial topiramate s/e reviewedfo llow up in 2 weeks [id number] Carl Barcenas MD , [facility], [address] [place] [address] 03/18/2020 09:11:16 03/21/2020 12:49:06 Headache 98716367 R51.9 continue with headache diarytake 75 mg of topirimate x 2 weeks [id number] Carl Barcenas MD , [facility], [address] [place] [address] 04/07/2020 13:21:02 04/10/2020 18:22:22 Headache 24535715 R51.9 improved with topamax - but does endorse side effectsmon itor for 3 weeksconti nue headache journal [id number] Carl Barcenas MD , [facility], [address] [place] [address] 05/04/2020 11:27:11 05/11/2020 14:19:56 Screening for disorder 214141058 Z11.59 Migraine 82963191 G43.90 9 thus far amitryptil ine and verapamil ineffectiv e trial topiramate , s/e improved break through headaches x 2 in last two weeks will titrate up to 100 mg and refer to neurology [id number] Carl Barcenas MD , [facility], [address] [place] [address] 02/15/2021 15:28:57 02/15/2021 16:14:08 Adult health examination 560543861 Z00.00 see Risk Assessment and Lifestyle Change Counseling section above, on menses currently, declines pap today but willing to schedule in future Counseling 202395639 Z71 .9 Depression screening 171 853625 Z13.31 depression screening tool administer ed, entered into emr, scored and discussed, time greater than 7.5 minutes Screening for alcohol abuse 061188151 Z13.39 Active or passive immunization 373031310 Z23 Family his tory of Thyroid disorder 793224110 Z83.49 Tinea corporis 83967514 B35.4 Overweight 525319649 E66 .3 pt verbalized understand ing of diet and exercise. plans to increase activity.f ollow up in 1 months, consider nutrition consultati on at that time. [id number] Mara Young MD FP, [facility], [address] [facility] [place] [address] 10/18/2021 09:38:04 10/18/2021 10:52:52 Gastroesophageal reflux disease 332823073 K21.9 Migraine 52592321 G43.90 9 acute intractabl e migraine since for > 48 hrs. Although got better initially and then exacerbate d by computer work. Consistent with past migraines. Her sumatripta n (she hasn't taken more than 100 mg daily) has helped some but not fully resolving symptoms-I M toradol 60 mg in office today (no nsaids /aspirin for next 6 hrs-promet hazine 25 mg IM x 1 today-can retrial her sumatripta n and take up to 200 mg in 24 hrs.-consi moshe touching base with your neurologis t ly if not resolving. -follow up if worsening/ new symptoms/n ot resolving. [id number] Carl Barcenas MD , [facility], [address] [place] [address] 04/04/2022 08:27:08 04/05/2022 10:08:37 Adult health examination 914053749 Z00.00 see Risk Assessment and Lifestyle Change Counseling section above, pap deferred, virtual visit today due to respirator y symptoms Counseling 907777534 Z71 .9 Depression screening 171 530087 Z13.31 depression screening tool administer ed, entered into emr, scored and discussed, time greater than 7.5 minutes Screening for alcohol abuse 977378479 Z13.39 Migraine 09042248 G43.90 9 menstrual migraines Obesity 752770640 E66.9 continue with heart healthy nutrition, continue walking Gastroesop hageal reflux disease 362076551 K21.9 reduce to 20 mg, may use pepcid for breakthrou gh symptoms Pain in throat 390735012 R07.0 [id number] Magdalena Jara MD , [facility], [address] [place] [address] 05/15/2023 17:13:01 05/16/2023 14:23:14 Cough 19808802 R05.9 Patient presents with cough.Like ly secondary to: virusDiscu ssed supportive measures.F ollow up if not improving or with worsening symptoms. I am concerned about the unexplaine d elevated pulse. Will check CXR and labs. Note that she has had high pulse in past [id number] Carl Barcenas MD , [facility], [address] [place] [address] 06/11/2023 09:04:31 06/11/2023 15:50:00 Adult health examination 928003176 Z00.00 Wellness exam: -Labs and vaccines reviewed-F irst PAP done today.-F/u in 6 months please. Depression screening 171 576324 Z13.31 depression screening tool administer ed Screening for alcohol abuse 639914769 Z13.39 Alcohol use screening tool administer ed Migraine 92974624 G43.90 9 Stable on Topamax and sumatripta n sparinglyF ollows with neurology, Dr. Tang at [facility] and last consult note 10/2021 reviewed. Gastroesop hageal reflux disease 230078791 K21.9 On omeprazole [address] once daily now. Discussed taking QOD for 1 month and tapering off. Obesity 973317835 E66.9 Discussed nutrition and exercise. Screening for malignant neoplasm of cervix 035262483 Z12.4 Going to [place] for her birthday and would like 1 extra pill pack BCPs which she takes continuous ly as was having menstrual migraines. Has never been sexually active.Onl y wanted 1 sent and then gets 3 months at a time. [id number] Carl Barcenas MD , [facility], [address] [place] [address] 12/17/2023 09:57:20 12/17/2023 10:25:45 Migraine 13430821 G43.909 Stable on Topamax and sumatripta n sparinglyF ollows with neurology, Dr. Tang at [facility] and last consult note 10/2021 reviewed. Pain of le ft knee joint 3027840912 87788 M25.562 Chronic: after more prolonged walking; Start with course of PT. Gastroesop hageal reflux disease 829546101 K21.9 Had seen GI and EGD back in 2012:Pt stopped taking omeprazole 5 months ago, did QOD, then off; acid reflux is not as bad as it was but still there, maybe 5 days a week, some days worse than others. Had seen GI many years ago. Had EGD 2012.Discu ssed dietary measures, weight loss, go back on omeprazole for now and if sxs persist, may need to revisit with GI. [id number] RUPERT RUIZ, PT, DPT Physical Therapy, [facility] [address] [place] [address] 01/21/2024 07:50:28 01/21/2024 12:06:49 Pain of left knee joint 8429080445 29860 M25.562 [id number] RUPERT RUIZ PT, DPT Physical Therapy, [address] [address] 01/30/2024 07:30:10 01/30/2024 13:11:46 Pain of left knee joint 4551189989 33031 M25.562 [id number] RUPERT RUIZ PT, DPT Physical Therapy, [address] [address] 02/06/2024 07:28:50 02/06/2024 13:49:02 Pain of left knee joint 3014643721 88766 M25.562 [id number] RUPERT RUIZ PT, DPT Physical Therapy, [address] [address] 02/13/2024 07:31:56 02/13/2024 12:25:04 Pain of left knee joint 1008541106 67229 M25.562 [id number] RUPERT RUIZ PT, DPT Physical Therapy, [address] [address] 02/19/2024 12:26:36 02/19/2024 15:01:56 Pain of left knee joint 8165235635 36630 M25.562 [id number] RUPERT RUIZ PT, DPT Physical Therapy, [address] [address] 03/06/2024 16:01:55 03/06/2024 16:57:23 Pain of left knee joint 3573211670 50647 M25.562 [id number] RUPERT RUIZ PT, DPT Physical Therapy, [address] [address] 03/13/2024 16:24:53 03/13/2024 16:59:47 Pain of left knee joint 9777425877 95209 M25.562 [id number] RUPERT RUIZ PT, DPT Physical Therapy, [address] [address] 03/30/2024 13:58:34 03/30/2024 14:56:33 Pain of left knee joint 8472435477 19180 M25.562 [id number] Cinthia Palmer MD , [facility], [address] [place] [address] 10/22/2024 15:54:48 10/22/2024 16:46:44 Adult health examination 794445774 Z00.00 Routine wellness visit with no specific concerns. Well-manag ed on current medication s. Discussed lifestyle modificati ons including diet and exercise.- Pt endorses regular dental visits- Discuss healthy Mediterran elizabeth-style diet.- Encourage regular exercise, aiming for 20-minute walks 2-3 times a week. Depression screening 171 092175 Z13.31 depression screening tool administer ed Screening for alcohol abuse 968039222 Z13.39 Alcohol use screening tool administer ed Contracept ion care management 840305681 Z30.9 Menorrhagi a managed with continuous control to prevent menstruati on. control prescripti on needs updating to specify no placebo pills.- Update control prescripti on to specify no placebo pills. Gastroesop hageal reflux disease 512064814 K21.9 GERD managed with omeprazole every other day, effectivel y controllin g symptoms.- Continue omeprazole every other day. Obesity 374035102 E66.9 Discuss optimizing weight through healthy Mediterran elizabeth-style diet and encouragin g regular exercise, aiming for 20-minute walks 2-3 times a week. Ferritin l evel below reference range 947752700 R77.8 Borderline anemia with family history. On iron supplement ation. No signs of gastrointe stinal bleeding. Plan to monitor iron levels.- Order iron panel, ferritin, and iron studies to assess current iron status Migraine 08473637 G43.90 9 Migraines well-contr olled with topiramate and sumatripta n. No migraines in the past 4-5 months. Follows up with neurology. - Continue topiramate daily.- Use sumatripta n as needed for acute migraine.- Continue follow-up with neurology. Health Concerns Section Related Observation LastModified by Organization Detai ls LastModified Time None Recorded Concern Status LastModified by Organization Details LastModified Time None Recorded Advance Directives Directive N: Payers Insurance Date Sequence Insurance Name Policy Number Policy Bowens Covered Member ID Bowens Member ID Guarantor Name 02/12/2020 1 [place] [facility] Lainey Blanco [id number] Lainey Blanco 02/12/2020 1 [facility] [id number] Lainey M Blanco [id number] Lainey Blanco 10/15/2001 1 [place] [facility] [id number] Arun Blanco [id number] Lainey Blanco 02/12/2020 1 [facility] [id number] Lainey Blanco [id number] Lainey Blanco 09/05/2000 1 *SELF PAY* He ather Blanco 02/12/[address] [facility] HEALTH NET PLAN (MEDICAID HMO) Lainey M Blanco [id number] Lainey Blanco 02/12/2020 2 [place] [facility] Lainey Blanco [id number] Lainey Blanco 02/12/[address] [facility] HEALTH NET PLAN (MEDICAID HMO) Lainey Blanco [id number] Lainey Blanco 10/19/2021 [employer] Sean Blanco Lainey Blanco 02/12/2020 1 [facility] [employer] (PPO) [id number] Lainey Blanco [id number] Lainey Blanco 02/12/2020 1 [facility] - CIGNA (PPO) [id number] Lainey Blanco [id number] Lainey Blanco 02/12/2020 1 [facility] [facility] [employer] - C[employer] (PPO) [id number] Lainey Blanco [id number] Lainey Blanco 02/12/2020 2 [facility] C[facility] - PLAN TYPE 3 (MEDICAID HMO) [id number] Lainey Blanco [id number] Lainey Blanco 02/12/2020 1 [facility] CARE[facility] - CAREPLUS A (MEDICAID HMO) [id number] Lainey M Blanco [id number] Lainey Blanco 10/26/2024 1 [facility]: BLUE OPTIONS (PPO) [id number] Lainey M Blanco [id number] Lainey Blanco Notes Date Note Type Note Provider Name and Address Organization Details Recorded Time 4 text/html PT Initial Eval*Reported bypatient.Associated Symptoms:no nausea; no vomiting; no fever; no chills; no excessive fatigue; no confusion; no forgetfulness; no dizziness; no lightheadedness; no change in weight; no numbness; no tingling; no changes in urinary habits; no changes in bowel habits; no loss of pleasure or interest in activities; no feeling down or depressedPT Daily Progress NoteReported bypatient.Notes:Overall improving. She is feeling good. Still limited in her walking tolerance - starting having pain recently after walking 7k steps. Previously would be able to get to 10k. Patient Specific Functional Score:80 Percent limitation in Walking long distancesPt referred to PT by Dr. Tapia regarding L knee pain. First episode of knee pain started when she was 20 and she was told that she had tendinitis. She wore a brace and it gradually went away. She started having this pain again 6 months ago. She is no longer getting relief from the knee brace. Her knee pain is 6/10 on average. Her pain is sharp and shooting. Pain is worse when she is bending her knee. Ankle sprain on the same side in 2019. She wore a brace for a while. She got better with rehab but it still doesn't feel 100%. She is not very active. She feels like her whole L leg is weaker. Her hip starts to hurt sometimes too when she is walking - always starts with the knee. Her ankles feel weak. No swelling, no buckling, no popping or clicking. No imaging. Functional Limitations: walking and standing tolerances, stair navigation Stated Goals: reduce knee pain RUPERT RUIZ, PT, DPT [address] [place] [address], [phone], [facility] 02/19/2024 13:00:41 4 text/html PT Initial Eval*Reported bypatient.Associated Symptoms:no nausea; no vomiting; no fever; no chills; no excessive fatigue; no confusion; no forgetfulness; no dizziness; no lightheadedness; no change in weight; no numbness; no tingling; no changes in urinary habits; no changes in bowel habits; no loss of pleasure or interest in activities; no feeling down or depressedPT Daily Progress NoteReported bypatient.Notes:She is sore from walking during trick or treating, was out walking and standing for 2 hrs. The squats have been hurting a little over the past few days - on the top of her kneecap. She is going to be taking care of a friends' dog for 9 days and will have to do a lot more walking than normal (4ksteps+). Concerned about holding up through this! Patient Specific Functional Score:80 Percent limitation in Walking long distancesPt referred to PT by Dr. Tapia regarding L knee pain. First episode of knee pain started when she was 20 and she was told that she had tendinitis. She wore a brace and it gradually went away. She started having this pain again 6 months ago. She is no longer getting relief from the knee brace. Her knee pain is 6/10 on average. Her pain is sharp and shooting. Pain is worse when she is bending her knee. Ankle sprain on the same side in 2019. She wore a brace for a while. She got better with rehab but it still doesn't feel 100%. She is not very active. She feels like her whole L leg is weaker. Her hip starts to hurt sometimes too when she is walking - always starts with the knee. Her ankles feel weak. No swelling, no buckling, no popping or clicking. No imaging. Functional Limitations: walking and standing tolerances, stair navigation Stated Goals: reduce knee pain RUPERT RUIZ, PT, DPT [address] [place] [address], [phone], [facility] 03/06/2024 16:32:59 4 text/html PT Initial Eval*Reported bypatient.Associated Symptoms:no nausea; no vomiting; no fever; no chills; no excessive fatigue; no confusion; no forgetfulness; no dizziness; no lightheadedness; no change in weight; no numbness; no tingling; no changes in urinary habits; no changes in bowel habits; no loss of pleasure or interest in activities; no feeling down or depressedPT Daily Progress NoteReported bypatient.Notes:Her knee has calmed back down. She is struggling with squats and SL RDL. 6800 steps yesterday because she was walking her friends' dog. Patient Specific Functional Score:80 Percent limitation in Walking long distancesPt referred to PT by Dr. Tapia regarding L knee pain. First episode of knee pain started when she was 20 and she was told that she had tendinitis. She wore a brace and it gradually went away. She started having this pain again 6 months ago. She is no longer getting relief from the knee brace. Her knee pain is 6/10 on average. Her pain is sharp and shooting. Pain is worse when she is bending her knee. Ankle sprain on the same side in 2019. She wore a brace for a while. She got better with rehab but it still doesn't feel 100%. She is not very active. She feels like her whole L leg is weaker. Her hip starts to hurt sometimes too when she is walking - always starts with the knee. Her ankles feel weak. No swelling, no buckling, no popping or clicking. No imaging. Functional Limitations: walking and standing tolerances, stair navigation Stated Goals: reduce knee pain RUPERT RUIZ, PT, DPT [address] [place] [address], [phone] 03/13/2024 16:58:09 4 text/html PT Initial Eval*Reported bypatient.Associated Symptoms:no nausea; no vomiting; no fever; no chills; no excessive fatigue; no confusion; no forgetfulness; no dizziness; no lightheadedness; no change in weight; no numbness; no tingling; no changes in urinary habits; no changes in bowel habits; no loss of pleasure or interest in activities; no feeling down or depressed Patient Specific Functional Score:80 Percent limitation in Walking long distancesPt referred to PT by Dr. Tapia regarding L knee pain. First episode of knee pain started when she was 20 and she was told that she had tendinitis. She wore a brace and it gradually went away. She started having this pain again 6 months ago. She is no longer getting relief from the knee brace. Her knee pain is 6/10 on average. Her pain is sharp and shooting. Pain is worse when she is bending her knee. Ankle sprain on the same side in 2019. She wore a brace for a while. She got better with rehab but it still doesn't feel 100%. She is not very active. She feels like her whole L leg is weaker. Her hip starts to hurt sometimes too when she is walking - always starts with the knee. Her ankles feel weak. No swelling, no buckling, no popping or clicking. No imaging. Functional Limitations: walking and standing tolerances, stair navigation Stated Goals: reduce knee pain Re-evaluation 03/30/24Percent limitation in walking long distances She has been sick - got a really bad cold. Having trouble getting through the end of the symptoms. Ankle is good. Knee is okay today. She is doing well overall with her knee pain. Doing good overall with her walking tolerance. She feels like her knee is in a good place and is ready to manage it on her own. RUPERT RUIZ, PT, DPT [address] [place] [address], [phone], [facility] 03/30/2024 14:26:12 5 text/html Risk Assessment and Lifestyle Change Counseling 18-50Reported bypatient.Coronary Artery Disease Risk Assesment:No personal history of diabetes; No history of peripheral vascular disease, AAA, or carotid disease; No personal history of coronary artery disease Breast Cancer Risk Assessment:No family history of breast cancer Lung Cancer Risk Assessment:Never smoked Cognitive/Behavioral Risk Assessment:No personal history of mental illness Safety Risk Assessment:No evidence of abuse/neglect Colon Cancer Risk:No family history of colon polyps or cancer Diet:Counseled about eating a diet low in trans and saturated fats and high in fiber, fruits and vegetables; Counseled about the importance of maintaining a positive calcium balance and taking 1000 iu Vitamin D daily.; Counseled about decreasing carbohydrates; Discussed the value of a Mediterranean diet, and eating more fruits and vegetables Exercise counseling:Discussed the importance of daily physical activity; Discussed the importance of weight bearing exercise; Walks regularly -- 2-3x a week Safety:Counseled about protecting skin from the sun and lowering the risk of skin cancer; Counseled about use of helmets for high velocity activiities; Counseled about home safety including use of smoke detectors, CO detectors, keeping home water temperature less than 120; Counseled about use of seat belts; An audit alcohol screening was performed and scored. Patient was asked about alcohol use. Advised about risks of alcohol and personal risk was assessed. Patient agreed to plan and given information about available resources if needed. Discussion including screening and scoring greater than 7.5 minutes. Family Planning:Using control Control Pills; never sexually activeSocial DeterminantsReported bypatient.Living situationno concerns Living situation...do you have problems with the following:no concerns In the past 12 months, have you worried your food would run out before you had money to buy more?no concerns Within the past 12 months, the food just didn't last and you didn't have money to get more.no concerns Has lack of transportation kept you from medical appointments, meetings, work, etc?no In the past 12 months has the [employer], [employer] or [employer] threatened to shut off services?no How hard is it for you to pay the very basics like food, house, medical care and housing?no concerns 10/22/24- pt is here today for Annual Wellnesswould like breast exam & skin exam Works for [employer] -- contract with [employer] --Repetitive but likes the workLives alone.SingleNot sexually active Migraines --Hasn't had one in 4-5 monthsDepends on stressSees neurology -- [facility] On the OCP --Don't get periodhistorically painful and heavy SORAIDA PEÑA DNP [address] [place] [address], [place], [id number], [facility] [place] 10/22/2024 20:11:42 OBGyn Episode No OBEpisode recorded.
--- NOTE | 2024-11-13 16:30 | A.OFFVIS_ITS ---
Vital Signs 11/13/24 16:30 Height 5 ft Intake Visit Reasons: 6m Allergies No Known Allergies Allergy (Verified 11/13/24 16:34) Medication List - Last Reconciled 11/13/24 by Kezia Rdz CNP levonorgestrel-ethinyl estrad 0.1-20 mg-mcg (Vienva) 1 tab PO DAILY metoclopramide HCl 5 mg PO DAILY PRN 30 days omeprazole 20 mg PO DAILY sumatriptan succinate take 1 tab at onset of headache; if no relief may repeat 1 tab after at least 2 hrs; PO 30 days topiramate 100 mg PO DAILY HPI Comments Details: 34-year-old woman with migraine. She was doing okay. Migraines were well controlled with topiramate. Her last migraine was a few months ago. Sumatriptan as needed helped. Triggers included stress and lack of sleep. Sleep was up and down. Mood was okay. [facility] Medical History (Updated 11/13/24 @ 16:32 by Kezia Rdz CNP) Iron deficiency anemia GERD (gastroesophageal reflux disease) Obesity Insomnia Migraine without aura Family History Sister Headache Review of Systems Const Denies chills, Denies daytime sleepiness, Reports difficulty sleeping, Denies fatigue, Denies fever(s), Denies frequent falls, Reports headache(s), Denies increased appetite, Denies poor appetite, Denies snoring, Denies weakness, Denies weight gain and Denies weight loss Eyes Denies loss of vision ENT Denies vertigo, Denies dizziness and Reports headache(s) Card Denies chest pain at rest, Denies chest pain with activity, Denies leg edema and Denies palpitations Resp Denies snoring GI Denies constipation, Denies heartburn, Denies diarrhea and Denies nausea Denies urinary frequency, Denies urinary incontinence and Denies urinary urgency Musc Denies abnormal gait, Denies numbness and Denies tingling Skin/Breast Denies dry skin and Denies rash Neuro Denies abnormal gait, Denies vertigo, Denies dizziness, Denies frequent falls, Reports headache(s), Denies lack of coordination, Denies loss of vision, Denies memory loss, Denies numbness, Denies restless legs, Denies seizure-like activity, Denies tingling, Denies paresthesias, Denies tremor(s) and Denies weakness Psych Denies anxiety, Denies depression, Denies auditory hallucinations, Denies memory loss, Denies visual hallucinations and Denies suicidal ideation Endo Denies fatigue and Denies palpitations Physical Exam Const Other: General Appearance:? normal, in no acute distress. Skin:? no rashes, no significant birthmarks. Heart:? S1, S2 normal, no murmurs. Lungs:? clear anteriorly and posteriorly. Extremities:? no edema. Psych:? alert, oriented, cognitive function intact, cooperative with exam. Neuro Other: Mental Status:?Normal attention, orientation, memory and affect.? Cranial Nerves:?Pupils are equal, round and reactive to light. External occular muscles are intact. Visual guzmán are full. Face is symmetrical. Facial sensations are normal. Tongue is midline. Palate elevates symmetrically. Shoulder shrugging is normal. Hearing to bedside conversation is normal. Motor Examination:?Normal muscle tone, bulk and strength,?Deep tendon reflexes are 2+,?Plantars are flexor.? Sensory Exam:?....? Coordination:?No ataxia,?no titubation.? Gait Exam: Within normal limits. Cerebellar Signs:?[id number] and [id number] is normal.? Extrapyramidal System:?No tremor, rigidity with normal facial expressions.? Pronator Drift:?Not present.? Involuntary Movements:?No tremors seen.? Speech:?Normal.? Assessment & Plan Assessment & Plan (1) Migraine without aura: Code(s): G43.009 - Migraine without aura, not intractable, without status migrainosus Category: Medical Qualifiers: Status migrainosus presence: without status migrainosus Intractability: not intractable Qualified Code(s): G43.009 - Migraine without aura, not intractable, without status migrainosus Plan: Continue topiramate 100mg 1 tablet daily. Continue sumatriptan 50mg 1 tablet as needed for migraine. Continue metoclopramide 5mg 1 tablet as needed for nausea/vomiting. Medications: New sumatriptan succinate take 1 tab at onset of headache; if no relief may repeat 1 tab after at least 2 hrs; PO 10 tabs 5RF 30 days metoclopramide HCl 5 mg PO DAILY PRN 10 tabs 2RF nausea and vomiting 30 days Coding Level of Care Code Est Pt Level 3 (63026) Diagnoses Migraine without aura and without status migrainosus, not intractable G43.009 Status migrainosus presence: without status migrainosus Intractability: not intractable
== END 2024-11-13 16:41 | disposition home or self-care (01) ==
LOC: HO.HSM 16:08
PROVIDERS: PCP Family Medicine; Visit Provider Registered Nurse
DX: G43.009 Migraine without aura, not intractable, without status migrainosus (principal)
CPT/HCPCS: 99213